=== PATIENT | female | born 1955 | race Caucasian/White ===

== ENCOUNTER → 2017-02-22 | Outpatient (CLI) | payer BC, OTHER ==
--- NOTE | 2017-02-22 10:13 | REPMRS ---
Patient History The patient states she had a clinical breast exam in Patient is postmenopausal. No known family history of cancer. Took estrogen for 1 year. Digital Woman Screen Mammo: February 22, 2017 - Exam #: [id number] Bilateral CC and MLO view(s) were taken. Technologist: Jennifer Sam, Technologist Prior study comparison: March 15, 2015, digital woman screen mammo performed at [facility]. May 10, 2013, digital woman screen mammo performed at [facility]. August 20, 2010, bilateral bilat screen digital mammo performed at [facility]. October 02, 2009, bilateral bilat screen digital mammo performed at [facility]. FINDINGS: There are scattered fibroglandular densities. There has been no change in the appearance of the mammogram from the prior studies. There is a mild amount of residual fibroglandular tissue which is fairly symmetric. There is no interval development of dominant mass, architectural distortion, or clustered microcalcification suggestive of malignancy. Scattered lymph nodes are seen in the right axilla. No significant changes when compared with prior studies. ASSESSMENT: BI-RADS/ACR category 2 mammogram. Benign finding(s). Recommendation Routine screening mammogram in 1 year (for women over age 40). This mammogram was interpreted with the aid of an FDA-approved computer-aided dectection system. A. Negative x-ray reports should not delay biopsy if a dominant or clinically suspicious mass is present. B. Four to eight percent of cancers are not identified by mammography. C. Adenosis and dense breast may obscure an underlying neoplasm. Electronically Signed By: Arnaldo Rey MD 02/22/17 [id number]
== END ==
LOC: M WHC 08:03
PROVIDERS: ATTEND Nurse Practitioner Family
DX: Z12.31 Encounter for screening mammogram for malignant neoplasm of breast (principal)

== ENCOUNTER → 2017-05-18 | Outpatient (REF) | payer OTHER ==
[2017-05-18 13:02] LABS: ALBUMIN 3.6 GM/DL (3.2-5.2); ALBUMIN/GLOBULIN RATIO 1.33 (1.00-1.93); ALKALINE PHOSPHATASE 88 U/L (45-117); ALT/SGPT 41 U/L (12-78); ANION GAP 4 MEQ/L (8-16); AST/SGOT 47 U/L (15-37); BILIRUBIN,TOTAL 0.5 MG/DL (0.2-1.0); BLOOD UREA NITROGEN 13 MG/DL (7-18); CALCIUM LEVEL 8.4 MG/DL (8.8-10.2); CARBON DIOXIDE LEVEL 30 MEQ/L (21-32); CHLORIDE LEVEL 99 MEQ/L (98-107); CREATININE FOR GFR 0.64 MG/DL (0.55-1.02); GLOMERULAR FILTRATION RATE > 60.0 (>45); GLUCOSE, FASTING 102 MG/DL (80-110); POTASSIUM SERUM 4.2 MEQ/L (3.5-5.1); SODIUM LEVEL 133 MEQ/L (136-145); TOTAL PROTEIN 6.3 GM/DL (6.4-8.2)
== END ==
LOC: M SFHCPLAZ 08:47
PROVIDERS: ATTEND Nurse Practitioner Family
DX: I10 Essential (primary) hypertension (principal)

== ENCOUNTER → 2017-05-20 | Outpatient (CLI) | payer BC, OTHER ==
--- NOTE | 2017-05-21 01:28 | REP ---
Clinical: Hypertension . Comparison: 12/26/2007 . Technique: PA and lateral. Findings: The mediastinum and cardiac silhouette are normal. The lung moya are clear and without acute consolidation, effusion, or pneumothorax. The skeletal structures are intact and normal. Impression: 1. No acute cardiopulmonary process. Signed by Jose Guadalupe Vasquez MD 05/21/2017 01:19 A
== END ==
LOC: M WUC 14:56
PROVIDERS: ATTEND Nurse Practitioner Family
DX: I10 Essential (primary) hypertension (principal)

== ENCOUNTER → 2017-09-13 | Outpatient (CLI) | payer BC, OTHER ==
[2017-09-13 13:24] LABS: ALBUMIN 3.9 GM/DL (3.2-5.2); ALBUMIN/GLOBULIN RATIO 1.44 (1.00-1.93); ALKALINE PHOSPHATASE 85 U/L (45-117); ALT/SGPT 44 U/L (12-78); ANION GAP 5 MEQ/L (8-16); AST/SGOT 46 U/L (15-37); BILIRUBIN,TOTAL 0.5 MG/DL (0.2-1.0); BLOOD UREA NITROGEN 12 MG/DL (7-18); CARBON DIOXIDE LEVEL 31 MEQ/L (21-32); CHLORIDE LEVEL 98 MEQ/L (98-107); CHOLESTEROL LEVEL 183 MG/DL (<200); CREATININE FOR GFR 0.66 MG/DL (0.55-1.02); GLOMERULAR FILTRATION RATE > 60.0 (>45); GLUCOSE, FASTING 82 MG/DL (80-110); POTASSIUM SERUM 3.9 MEQ/L (3.5-5.1); SODIUM LEVEL 134 MEQ/L (136-145); TOTAL PROTEIN 6.6 GM/DL (6.4-8.2); TRIGLYCERIDES LEVEL 93 MG/DL (<150)
== END ==
LOC: M WUC 09:57
PROVIDERS: ATTEND Nurse Practitioner Family
DX: I10 Essential (primary) hypertension (principal); B00.9 Herpesviral infection, unspecified; E78.5 Hyperlipidemia, unspecified

== ENCOUNTER → 2017-10-25 | Outpatient (CLI) | payer BC, OTHER ==
--- NOTE | 2017-10-25 20:51 | REP ---
Duplex carotid sonography: History: Occlusion and stenosis of the carotid. Comparison study April 21, 2016. Findings: Antegrade flow is observed in both vertebral arteries. Right carotid: The right common carotid artery shows diffuse intimal thickening. There is moderate mixed plaquing in the bulb and proximal ICA and proximal ECA on two-dimensional scanning on the right side. Elevated systolic and diastolic ICA velocities are observed on the right on color Doppler and spectral Doppler interrogation. Velocity chart: CCA PSV 70 cm/s ICA PSV 218 cm/s ICA EDV 69 cm/s ECA PSV 246 cm/s Right ICA/CCA ratio elevated 3.1. Impression: 50- 79% category narrowing in the right ICA by Doppler velocity criteria. Right ICA and ECA Doppler velocities have increased in the interval since the prior study. Left carotid: Left common carotid artery shows diffuse intimal thickening. There is moderate mixed plaquing in the bulb and proximal ICA on two-dimensional scanning on the left side. Color flow and spectral Doppler interrogation demonstrate normal waveforms and velocities on the left. Velocity chart: Left CCA PSV 93 cm/s ICA PSV 116 cm/s ICA EDV 30 cm/s ECA PSV 120 cm/s Left ICA/CCA ratio normal 1.2. Impression: 16-49% category narrowing in the left ICA by Doppler velocity criteria. Signed by Inocente Lai MD 10/26/2017 04:14 P
== END ==
LOC: M RAD 16:45
PROVIDERS: ATTEND Internal Medicine Cardiovascular Disease
DX: I65.23 Occlusion and stenosis of bilateral carotid arteries (principal)

== ENCOUNTER → 2017-10-25 | Outpatient (CLI) | payer BC, OTHER | LOC: M WUC 18:11 | PROVIDERS: ATTEND Internal Medicine Cardiovascular Disease | DX: I49.3 Ventricular premature depolarization (principal) ==

== ENCOUNTER → 2017-11-24 | Outpatient (CLI) | payer BC, OTHER ==
[2017-11-24 17:16] LABS: ANION GAP 6 MEQ/L (8-16); BLOOD UREA NITROGEN 18 MG/DL (7-18); CALCIUM LEVEL 8.9 MG/DL (8.8-10.2); CARBON DIOXIDE LEVEL 31 MEQ/L (21-32); CHLORIDE LEVEL 101 MEQ/L (98-107); CREATININE FOR GFR 0.74 MG/DL (0.55-1.02); GLOMERULAR FILTRATION RATE > 60.0 (>45); GLUCOSE, FASTING 82 MG/DL (80-110); POTASSIUM SERUM 3.6 MEQ/L (3.5-5.1); SODIUM LEVEL 138 MEQ/L (136-145)
== END ==
LOC: M WUC 12:13
DX: I10 Essential (primary) hypertension (principal)
CPT/HCPCS: 80048

== ENCOUNTER → 2018-02-22 | Outpatient (CLI) | payer BC | LOC: M WHC 08:45 | DX: Z12.31 Encounter for screening mammogram for malignant neoplasm of breast (principal) | CPT/HCPCS: 77067 ==

== ENCOUNTER → 2018-05-25 | Outpatient (CLI) | payer BC, OTHER ==
[2018-05-25 19:37] LABS: ALBUMIN 3.9 GM/DL (3.2-5.2); ALBUMIN/GLOBULIN RATIO 1.39 (1.00-1.93); ALKALINE PHOSPHATASE 85 U/L (45-117); ALT/SGPT 47 U/L (12-78); ANION GAP 7 MEQ/L (8-16); AST/SGOT 58 U/L (7-37); BILIRUBIN,TOTAL 0.2 MG/DL (0.2-1.0); BLOOD UREA NITROGEN 20 MG/DL (7-18); CALCIUM LEVEL 8.6 MG/DL (8.8-10.2); CARBON DIOXIDE LEVEL 30 MEQ/L (21-32); CHLORIDE LEVEL 100 MEQ/L (98-107); CREATININE FOR GFR 0.72 MG/DL (0.55-1.30); GLOMERULAR FILTRATION RATE > 60.0 (>45); GLUCOSE, FASTING 97 MG/DL (70-100); MAGNESIUM LEVEL 2.2 MG/DL (1.8-2.4); POTASSIUM SERUM 3.7 MEQ/L (3.5-5.1); SODIUM LEVEL 137 MEQ/L (136-145); TOTAL PROTEIN 6.7 GM/DL (6.4-8.2)
== END ==
LOC: M WUC 17:49
DX: I10 Essential (primary) hypertension (principal)
CPT/HCPCS: 83735

== ENCOUNTER → 2018-05-25 | Outpatient (CLI) | payer BC, OTHER ==
[2018-05-25 19:35] LABS: ANION GAP 8 MEQ/L (8-16); BLOOD UREA NITROGEN 20 MG/DL (7-18); CALCIUM LEVEL 8.6 MG/DL (8.8-10.2); CARBON DIOXIDE LEVEL 30 MEQ/L (21-32); CHLORIDE LEVEL 100 MEQ/L (98-107); CREATININE FOR GFR 0.74 MG/DL (0.55-1.30); GLOMERULAR FILTRATION RATE > 60.0 (>45); GLUCOSE, FASTING 99 MG/DL (70-100); POTASSIUM SERUM 3.7 MEQ/L (3.5-5.1); SODIUM LEVEL 138 MEQ/L (136-145)
== END ==
LOC: M WUC 17:52
DX: I10 Essential (primary) hypertension (principal)

== ENCOUNTER → 2018-06-13 | Outpatient (CLI) | payer BC, OTHER | LOC: M WUC 14:08 | DX: M25.511 Pain in right shoulder (principal); M85.811 Other specified disorders of bone density and structure, right shoulder | CPT/HCPCS: 73030 ==

== ENCOUNTER → 2018-09-14 | Outpatient (CLI) | payer OTHER, BC ==
[2018-09-14 12:49] LABS: ALBUMIN 3.9 GM/DL (3.2-5.2); ALKALINE PHOSPHATASE 79 U/L (45-117); ALT/SGPT 46 U/L (12-78); ANION GAP 5 MEQ/L (8-16); AST/SGOT 49 U/L (7-37); BILIRUBIN,TOTAL 0.4 MG/DL (0.2-1.0); BLOOD UREA NITROGEN 16 MG/DL (7-18); CALCIUM LEVEL 9.2 MG/DL (8.8-10.2); CARBON DIOXIDE LEVEL 31 MEQ/L (21-32); CHLORIDE LEVEL 100 MEQ/L (98-107); CHOLESTEROL LEVEL 169 MG/DL (<200); CHOLESTEROL RISK RATIO 2.315 (<5); CREATININE FOR GFR 0.55 MG/DL (0.55-1.30); GLOMERULAR FILTRATION RATE > 60.0 (>45); GLUCOSE, FASTING 81 MG/DL (70-100); HDL CHOLESTEROL 73 MG/DL (>40); LDL CHOLESTEROL 79 MG/DL (<100); NON-HDL-C 96 MG/DL; POTASSIUM SERUM 3.7 MEQ/L (3.5-5.1); SODIUM LEVEL 136 MEQ/L (136-145); TOTAL PROTEIN 6.5 GM/DL (6.4-8.2); TRIGLYCERIDES LEVEL 85 MG/DL (<150)
[2018-09-14 12:54] LABS: TOTAL 25(OH) VITAMIN D 89.2 NG/ML (30.0-100.0)
== END ==
LOC: M WUC 10:11
DX: R94.5 Abnormal results of liver function studies (principal); E55.9 Vitamin D deficiency, unspecified; E78.5 Hyperlipidemia, unspecified
CPT/HCPCS: 80053

== ENCOUNTER → 2018-09-16 | Outpatient (CLI) | payer BC, OTHER | LOC: M RAD 11:31 | DX: I65.23 Occlusion and stenosis of bilateral carotid arteries (principal) | CPT/HCPCS: 93880 ==

== ENCOUNTER → 2019-03-07 | Outpatient (REF) | payer OTHER ==
[2019-03-10 14:12] LABS: HPV HYBRID CAPTURE II Negative (Negative)
== END ==
LOC: M SFHCWAGY 16:01
PROVIDERS: ATTEND Nurse Practitioner Family
DX: Z12.4 Encounter for screening for malignant neoplasm of cervix (principal)
CPT/HCPCS: 87624; G0123

== ENCOUNTER → 2019-03-07 | Outpatient (CLI) | payer BC ==
--- NOTE | 2019-03-08 09:08 | REPMRS ---
Patient History The patient states she had a clinical breast exam in 02/2019. No known family history of cancer. Took estrogen for 1 year. Digital Woman Screen Mammo: March 07, 2019 - Exam #: [id number] Bilateral CC and MLO view(s) were taken. Technologist: Nicolle Chacon, Technologist Prior study comparison: February 22, 2018, digital woman screen mammo performed at [facility]. February 22, 2017, digital woman screen mammo performed at [facility]. March 15, 2015, digital woman screen mammo performed at [facility]. FINDINGS: The breast tissue is heterogeneously dense. This may lower the sensitivity of mammography. There is a moderate amount of heterogeneously dense fibroglandular tissue which is fairly symmetric. There is no interval development of dominant mass, architectural distortion, or clustered microcalcification typical of malignancy. There has been no change in the appearance of the mammogram from the prior studies. 3-D tomosynthesis shows no additional findings. Assessment: BI-RADS/ACR category 1 mammogram. Negative Mammogram. Recommendation Routine screening mammogram of both breasts in 1 year (for women over age 40). This patient's Lifetime Breast Cancer RIsk is estimated at 6.1 %. This mammogram was interpreted with the aid of an FDA-approved computer-aided dectection system. Electronically Signed By: Sanjay Lai MD 03/08/19 0908
== END ==
LOC: M WHC 14:32
PROVIDERS: ATTEND Nurse Practitioner Family
DX: Z12.31 Encounter for screening mammogram for malignant neoplasm of breast (principal); Z92.23 Personal history of estrogen therapy

== ENCOUNTER 2019-05-02 11:05 | Emergency (ER) | payer BC, OTHER ==
[~2019-05-02] VITALS: Ht 157.5 cm; Wt 56.1 kg
[2019-05-02] MEDS ORDERED: CLEO150C PO (11:41)
[2019-05-02] MEDS ORDERED: INDA125TA PO (11:53)
[2019-05-02] MEDS ORDERED: ACET-897 PO (11:53)
[2019-05-02] MEDS ORDERED: ASPI81CH33 PO (11:53)
[2019-05-02] MEDS ORDERED: ATOR1TAB21 PO (11:53)
[2019-05-02] MEDS ORDERED: CLOP75TA2 PO (11:53)
[2019-05-02] MEDS ORDERED: LOSA100T50 PO (11:53)
[2019-05-02] MEDS ORDERED: K-TA10TA2 PO (11:53)
[2019-05-02 12:00] VITALS: BP 151/77
== END 2019-05-02 12:34 | disposition home or self-care (01) ==
LOC: M ED 11:05
DX: K11.20 Sialoadenitis, unspecified (principal); R59.0 Localized enlarged lymph nodes; I10 Essential (primary) hypertension; E78.9 Disorder of lipoprotein metabolism, unspecified; F17.200 Nicotine dependence, unspecified, uncomplicated; J30.2 Other seasonal allergic rhinitis; Z88.0 Allergy status to penicillin; Z88.1 Allergy status to other antibiotic agents; Z88.8 Allergy status to other drugs, medicaments and biological substances; Z79.899 Other long term (current) drug therapy; Z79.02 Long term (current) use of antithrombotics/antiplatelets; Z79.82 Long term (current) use of aspirin

== ENCOUNTER → 2019-05-03 | Outpatient (CLI) | payer BC, OTHER ==
[~2019-05-03] MED LIST: ACET-897 PO; ASPI81CH33 PO; ATOR1TAB21 PO; CLEO150C PO; CLOP75TA2 PO; INDA125TA PO; K-TA10TA2 PO; LOSA100T50 PO
--- NOTE | 2019-05-15 17:14 | REP ---
Clinical: Stenosis. Comparison: 09/16/2018 Technique: Enriquez scale and color Doppler evaluation using linear high frequency transducer Findings: Two-dimensional enriquez scale and color images demonstrate mixed atheromatous plaquing. Color Doppler interrogation demonstrates arterial wave patterns with elevated velocities to the right carotid bulb/internal carotid artery and mild spectral broadening. Normal flow direction is appreciated in the bilateral vertebral arteries. RIGHT (cm/s) LEFT (cm/s) ICA peak systolic velocity 191.0 103.0 ICA diastolic velocity 55.3 38.4 ECA peak systolic velocity 250.0 135.0 CCA peak systolic velocity 88.4 95.1 ICA/CCA ratio 2.16 1.08 Impression: 1. Findings suggest narrowing in the right internal carotid artery at 50-69% range and external carotid artery and 70% range. 2. Findings suggest narrowing in the left internal carotid artery at the less than 50% range. Electronically Signed by Jose Guadalupe Vasquez MD 05/15/2019 05:06 P
== END ==
LOC: M RAD 13:33
PROVIDERS: ATTEND Surgery Vascular Surgery
DX: I65.23 Occlusion and stenosis of bilateral carotid arteries (principal); F17.218 Nicotine dependence, cigarettes, with other nicotine-induced disorders

== ENCOUNTER → 2019-05-24 | Outpatient (CLI) | payer BC, OTHER ==
[2019-05-24 18:02] LABS: CHOLESTEROL RISK RATIO 1.987 (<5)
== END ==
LOC: M WUC 10:55
PROVIDERS: ATTEND Physician Assistant
DX: I65.23 Occlusion and stenosis of bilateral carotid arteries (principal)

== ENCOUNTER → 2019-05-24 | Outpatient (CLI) | payer BC, OTHER ==
[2019-05-24 16:50] LABS: ALBUMIN 3.8 GM/DL (3.2-5.2); ALT/SGPT 47 U/L (12-78); BILIRUBIN,TOTAL 0.3 MG/DL (0.2-1.0); BLOOD UREA NITROGEN 15 MG/DL (7-18); CALCIUM LEVEL 9.1 MG/DL (8.8-10.2); CARBON DIOXIDE LEVEL 29 MEQ/L (21-32); CHLORIDE LEVEL 100 MEQ/L (98-107); CREATININE FOR GFR 0.59 MG/DL (0.55-1.30); GLOMERULAR FILTRATION RATE > 60.0 (>45); GLUCOSE, FASTING 85 MG/DL (70-100); POTASSIUM SERUM 3.9 MEQ/L (3.5-5.1); SODIUM LEVEL 136 MEQ/L (136-145); TOTAL PROTEIN 6.6 GM/DL (6.4-8.2)
[2019-05-24 16:58] LABS: TOTAL 25(OH) VITAMIN D 49.9 NG/ML (30.0-100.0)
== END ==
LOC: M WUC 10:53
PROVIDERS: ATTEND Nurse Practitioner Family
DX: I10 Essential (primary) hypertension (principal); E55.9 Vitamin D deficiency, unspecified

== ENCOUNTER → 2019-12-27 | Outpatient (CLI) | payer MEDICARE, BC, OTHER ==
--- NOTE | 2019-12-27 11:04 | REP ---
Bilateral lower extremity arterial Doppler duplex ultrasound: Right lower extremity: The brachial peak systole: 160 mmHg. Dorsalis pedis peak systole: 150 mmHg. KILN TRANSFER OPERATOR peak systole: 160 mmHg. JONNY: 1.0. Peak Systolic Phasicity Velocity ANIMAL SURGEON 182 biphasic Profunda 95 biphasic SFA prox 92 biphasic SFA mid 105 triphasic SFA dist 93 bi-triphasic Pop 77 triphasic DALY prox 46 biphasic Tib/P tr 66 triphasic KILN TRANSFER OPERATOR pr 61 triphasic KILN TRANSFER OPERATOR dst 82 triphasic DALY dst 93 triphasic Left lower extremity: There is a brachial peak systole: 145 mmHg. Dorsalis pedis peak systole: 130 mmHg. KILN TRANSFER OPERATOR peak systole: 150 mmHg. JONNY: 0.9. Peak Systolic Phasicity Velocity ANIMAL SURGEON 168 bi-triphasic Profunda 176 biphasic SFA prox 152 triphasic SFA mid 143 triphasic SFA dist 110 triphasic Pop 84 biphasic DALY prox 45 triphasic Tib/P tr 71 triphasic KILN TRANSFER OPERATOR pr 44 triphasic KILN TRANSFER OPERATOR dst 82 biphasic DALY dst 73 biphasic Impression: There is moderate atheromatous plaque in the common femoral arteries bilaterally. There is mild plaque/intimal thickening throughout the remainder of the lower extremities bilaterally. There is no significant stenosis on the right on the left. Electronically Signed by Francisco J Field MD 12/27/2019 10:55 A
== END ==
LOC: M RAD 09:25
PROVIDERS: ATTEND Physician Assistant
DX: I70.213 Atherosclerosis of native arteries of extremities with intermittent claudication, bilateral legs (principal)

== ENCOUNTER → 2020-06-17 | Outpatient (CLI) | payer BC ==
--- NOTE | 2020-06-17 14:27 | REPMRS ---
Patient History The patient states she had a clinical breast exam in May 2020. Patient is postmenopausal. Family history of unknown cancer at age 6 in brother. Took estrogen for 1 year. Digital Woman Screen Mammo: June 17, 2020 - Exam #: [id number] Bilateral CC and MLO view(s) were taken. Technologist: Xin Hernandez Technologist Prior study comparison: March 07, 2019, bilateral digital woman screen mammo performed at [facility]. February 22, 2018, digital woman screen mammo performed at [facility]. February 22, 2017, digital woman screen mammo performed at [facility]. FINDINGS: There are scattered fibroglandular densities. The Volpara volumetric breast density category is:B. There has been no change in the appearance of the mammogram from the prior studies. There is a mild amount of scattered fibroglandular density which is fairly symmetric. There is no interval development of dominant mass, architectural distortion, or grouped microcalcification suggestive of malignancy. 3-D tomosynthesis shows no additional findings. Assessment: BI-RADS/ACR category 1 mammogram. Negative Mammogram. Recommendation Routine screening mammogram of both breasts in 1 year (for women over age 40). This patient's Lifetime Breast Cancer Risk is estimated at 5.8 %. This mammogram was interpreted with the aid of an FDA-approved computer-aided dectection system. Electronically Signed By: Sanjay Lai MD 06/17/20 [id number]
== END ==
LOC: M WHC 10:32
PROVIDERS: ATTEND Nurse Practitioner Family
DX: Z12.31 Encounter for screening mammogram for malignant neoplasm of breast (principal); Z12.4 Encounter for screening for malignant neoplasm of cervix; Z78.0 Asymptomatic menopausal state; Z80.9 Family history of malignant neoplasm, unspecified
CPT/HCPCS: 77063; 77067; G0123

== ENCOUNTER → 2020-07-17 | Outpatient (CLI) | payer MEDICARE, BC ==
--- NOTE | 2020-08-22 10:59 | REP ---
DUPLEX CAROTID SONOGRAPHY HISTORY: Follow-up stenosis. COMPARISON: 05/03/2019. FINDINGS: Antegrade flow is observed in both vertebral arteries. RIGHT CAROTID: There is mild diffuse intimal thickening in the right common carotid artery on two-dimensional scanning. There is [id number] mixed plaquing in the bulb proximal ICA and proximal ECA on the right. Stenotic flow velocities are observed in the right ICA on systole and diastole, as well as in the right ECA. Velocities are somewhat increased compared to the prior study on the right. RIGHT CAROTID VELOCITY CHART PSV EDV CCA 82 cm/s ICA 237 cm/s 65 cm/s ECA 359 cm/s ICA/CCA ratio 2.9 (elevated) IMPRESSION: Greater than 70% category stenosis in the right internal carotid artery (ICA). Velocities have increased since the prior study of 05/03/2019. LEFT CAROTID: The left common carotid artery shows diffuse intimal thickening. Moderate mixed plaquing is seen in the bulb proximal ICA and to a lesser extent proximal ECA on the left side. Stenotic flow velocities are observed in systole and diastole in the left ICA. Velocities have increased since the prior study on the left as well. LEFT CAROTID VELOCITY CHART PSV EDV CCA 100 cm/s ICA 212 cm/s 62 cm/s ECA 126 cm/s ICA/CCA ratio 2.1 (elevated) IMPRESSION: Greater than 70% category stenosis in the left internal carotid artery (ICA) by todays Doppler velocity criteria. Doppler velocities have increased on the left as well when compared with the prior study. MTDD
== END ==
LOC: M RAD 10:33
PROVIDERS: ATTEND Physician Assistant
DX: I65.23 Occlusion and stenosis of bilateral carotid arteries (principal)

== ENCOUNTER → 2021-02-20 | Outpatient (CLI) | payer MEDICARE, BC, OTHER ==
--- NOTE | 2021-02-20 14:18 | REP ---
INDICATION: OCCLUSION AND STENOSIS OF BILATERAL CAROTID ARTERY COMPARISON: Comparison study July 17, 2020.. TECHNIQUE: Real-time ultrasound evaluation and duplex Doppler interrogation of the extracranial carotid vasculature is performed. FINDINGS: Antegrade flow is observed in both vertebral arteries. Right carotid: The right common carotid artery shows diffuse intimal thickening but is otherwise unremarkable. There moderate to marked mixed plaquing in the right carotid bulb and proximal ICA on two-dimensional scanning. Color flow and spectral Doppler interrogation are unremarkable on the right. Velocity chart right carotid: Right CCA PSV: 70 cm/S Right ICA PSV: 210 cm/S Right ICA EDV: 40 cm/S Right ECA PSV: 406 cm/S Right ICA/CCA ratio: 3.01 Left carotid: The left common carotid artery shows diffuse intimal thickening but is otherwise unremarkable. There is moderate to marked mixed plaquing in the left carotid bulb and proximal ICA on two-dimensional scanning. Color flow and spectral Doppler interrogation are unremarkable on the left. Velocity chart left carotid: Left CCA PSV: 87 cm/S Left ICA PSV: 160 cm/S Left ICA EDV: 59 cm/S Left ECA PSV: 109 cm/S Left ICA/CCA ratio: 1.84 IMPRESSION: 50-69% category narrowing in the right internal carotid artery by Doppler velocity criteria. 50-69% category narrowing in the left ICA by Doppler velocity criteria. ICA velocities are slightly less than those recorded on the 07/17/2020 study bilaterally.. Velocity ratios are similar. <Electronically signed by Sanjay Lai > 02/20/21 [id number]
== END ==
LOC: M RAD 10:42
PROVIDERS: ATTEND Surgery Vascular Surgery
DX: I65.23 Occlusion and stenosis of bilateral carotid arteries (principal)

== ENCOUNTER → 2022-03-16 | Outpatient (CLI) | payer MEDICARE, BC, OTHER ==
[~2022-03-16] MED LIST changes: +LOSA100T45 PO; -LOSA100T50 PO
== END ==
LOC: M RAD 11:41
PROVIDERS: ATTEND Physician Assistant
DX: I65.23 Occlusion and stenosis of bilateral carotid arteries (principal)

== ENCOUNTER → 2022-03-26 | Outpatient (REF) | payer MEDICARE, OTHER ==
[2022-03-26 16:37] LABS: HEMATOCRIT 38.8 % (36.0-47.0); HEMOGLOBIN 11.6 g/dl (12.0-15.5); MEAN CORPUSCULAR HGB CONC 29.9 g/dl (32.0-36.5); MEAN CORPUSCULAR VOLUME 80.3 fl (80.0-96.0); PLATELET COUNT, AUTOMATED 311 10^3/uL (150-450); RED BLOOD COUNT 4.83 10^6/uL (4.00-5.40); WHITE BLOOD COUNT 5.4 10^3/uL (4.0-10.0)
[2022-03-26 16:53] LABS: HEMOGLOBIN A1c 5.6 %
[2022-03-26 17:08] LABS: ALBUMIN 3.9 GM/DL (3.2-5.2); ALT/SGPT 45 U/L (12-78); BILIRUBIN,TOTAL 0.3 MG/DL (0.2-1.0); BLOOD UREA NITROGEN 12 MG/DL (7-18); CARBON DIOXIDE LEVEL 30 MEQ/L (21-32); CHLORIDE LEVEL 104 MEQ/L (98-107); CHOLESTEROL LEVEL 187 MG/DL (<200); CHOLESTEROL RISK RATIO 2.253 (<5); CREATININE FOR GFR 0.55 MG/DL (0.55-1.30); GLOMERULAR FILTRATION RATE > 60.0 (>45); GLUCOSE, FASTING 74 MG/DL (70-100); HDL CHOLESTEROL 83 MG/DL (>40); LDL CHOLESTEROL 87 MG/DL (<100); NON-HDL-C 104 MG/DL; POTASSIUM SERUM 3.8 MEQ/L (3.5-5.1); SODIUM LEVEL 136 MEQ/L (136-145); TOTAL PROTEIN 6.9 GM/DL (6.4-8.2); TRIGLYCERIDES LEVEL 84 MG/DL (<150)
== END ==
LOC: M SFHCADAM 12:05
PROVIDERS: ATTEND Family Medicine
DX: K63.5 Polyp of colon (principal); I65.23 Occlusion and stenosis of bilateral carotid arteries; E78.5 Hyperlipidemia, unspecified; Z13.1 Encounter for screening for diabetes mellitus

== ENCOUNTER → 2022-04-24 | Outpatient (CLI) | payer MEDICARE, BC, OTHER ==
[~2022-04-24] MED LIST changes: +PROHANCE 279.3MG/ML 15ML VIAL ONE; +PROHANCE 279.3MG/ML 5ML VIAL ONE
== END ==
LOC: M PLAIMG 09:34
PROVIDERS: ATTEND Physician Assistant
DX: I65.23 Occlusion and stenosis of bilateral carotid arteries (principal)
CPT/HCPCS: 70549; A9576

== ENCOUNTER → 2022-07-15 | Outpatient (CLI) | payer MEDICARE, BC, OTHER ==
[~2022-07-15] MED LIST changes: +INDA1.253 PO; -INDA125TA PO; -PROHANCE 279.3MG/ML 15ML VIAL ONE; -PROHANCE 279.3MG/ML 5ML VIAL ONE
== END ==
LOC: M RAD 07:32
PROVIDERS: ATTEND Physician Assistant
DX: M47.896 Other spondylosis, lumbar region (principal)

== ENCOUNTER → 2022-10-01 | Outpatient (CLI) | payer MEDICARE, BC, OTHER ==
[~2022-10-01] MED LIST changes: +GABA-282 PO
== END ==
LOC: M LABSMTC 11:44
PROVIDERS: ATTEND Anesthesiology
DX: Z01.812 Encounter for preprocedural laboratory examination (principal); Z20.822 Contact with and (suspected) exposure to COVID-19

== ENCOUNTER 2022-10-06 08:33 | Day surgery (SDC) | payer MEDICARE, BC, OTHER ==
[~2022-10-06] VITALS: Ht 154.9 cm; Wt 58.5 kg
[~2022-10-06 08:33] MED LIST changes: +NS 1,000 ML IV ONE
[2022-10-06] MEDS ORDERED: propofoL 200 MG/20 ML VIAL As Ordered ONE ×2 (09:34→09:56)
[2022-10-06] MEDS ORDERED: LIDOCAINE 2% 100MG/5ML SDV (FOR ANES.) As Ordered ONE (09:34)
[2022-10-06 10:40] VITALS: BP 145/70
== END 2022-10-06 10:44 | disposition home or self-care (01) ==
LOC: M OPP 08:33
PROVIDERS: ATTEND Internal Medicine Gastroenterology
DX: Z12.11 Encounter for screening for malignant neoplasm of colon (principal); Z86.010 Personal history of colon polyps; D12.5 Benign neoplasm of sigmoid colon; D12.0 Benign neoplasm of cecum; D12.8 Benign neoplasm of rectum; Q43.8 Other specified congenital malformations of intestine; K64.8 Other hemorrhoids; Z79.02 Long term (current) use of antithrombotics/antiplatelets; Z79.51 Long term (current) use of inhaled steroids; Z79.82 Long term (current) use of aspirin; Z79.899 Other long term (current) drug therapy; Z88.0 Allergy status to penicillin; Z88.6 Allergy status to analgesic agent; Z88.8 Allergy status to other drugs, medicaments and biological substances; I49.3 Ventricular premature depolarization; I65.23 Occlusion and stenosis of bilateral carotid arteries; F17.200 Nicotine dependence, unspecified, uncomplicated; Z80.6 Family history of leukemia

== ENCOUNTER → 2023-04-20 | Outpatient (CLI) | payer MEDICARE, BC, OTHER ==
[~2023-04-20] MED LIST changes: -LOSA100T45 PO; +LOSA100T46 PO; -NS 1,000 ML IV ONE
== END ==
LOC: M RAD 06:57
PROVIDERS: ATTEND Family Medicine
DX: R74.01 Elevation of levels of liver transaminase levels (principal)

== ENCOUNTER → 2023-06-08 | Outpatient (CLI) | payer MEDICARE, BC, OTHER ==
[~2023-06-08] MED LIST changes: +GLUCAGON INJ 1MG VIAL As Ordered ONE; +ISOVUE-370 76% 100ML VIAL As Ordered ONE; -K-TA10TA2 PO; +NEULUMEX 0.1% SUSPENSION 450ML BOTTLE (FORMERLY VOLUMEN) As Ordered ONE; +POTA-165 PO; +PRES10CA2 PO; +VITA100093 PO; +VITATAB73 PO; +VITMTA PO; +XIID5DRO OU
== END ==
LOC: M RAD 13:27
PROVIDERS: ATTEND Physician Assistant Medical
DX: D50.9 Iron deficiency anemia, unspecified (principal)
CPT/HCPCS: 74177; J1610; Q9967

== ENCOUNTER → 2023-07-01 | Outpatient (CLI) | payer MEDICARE, BC, OTHER ==
[~2023-07-01] MED LIST changes: -GLUCAGON INJ 1MG VIAL As Ordered ONE; -ISOVUE-370 76% 100ML VIAL As Ordered ONE; -NEULUMEX 0.1% SUSPENSION 450ML BOTTLE (FORMERLY VOLUMEN) As Ordered ONE; +PROHANCE 279.3MG/ML 15ML VIAL ONE
== END ==
LOC: M PLAIMG 14:30
PROVIDERS: ATTEND Physician Assistant Medical
DX: R93.3 Abnormal findings on diagnostic imaging of other parts of digestive tract (principal)
CPT/HCPCS: 74183; A9576

== ENCOUNTER → 2023-07-21 | Outpatient (CLI) | payer MEDICARE, BC, OTHER ==
[~2023-07-21] MED LIST changes: -PROHANCE 279.3MG/ML 15ML VIAL ONE
== END ==
LOC: M PLAIMG 10:19
PROVIDERS: ATTEND Physician Assistant
DX: R59.0 Localized enlarged lymph nodes (principal); Z72.0 Tobacco use

== ENCOUNTER → 2023-08-11 | Outpatient (CLI) | payer MEDICARE, BC, OTHER | LOC: M RAD 12:32 | PROVIDERS: ATTEND Physician Assistant | DX: D25.9 Leiomyoma of uterus, unspecified (principal); I65.23 Occlusion and stenosis of bilateral carotid arteries; N83.8 Other noninflammatory disorders of ovary, fallopian tube and broad ligament ==

== ENCOUNTER → 2023-08-11 | Outpatient (CLI) | payer MEDICARE, BC, OTHER | LOC: M RAD 12:20 | PROVIDERS: ATTEND Surgery Vascular Surgery | DX: I65.23 Occlusion and stenosis of bilateral carotid arteries (principal) ==

== ENCOUNTER → 2023-12-20 | Outpatient (REF) | payer MEDICARE, BC, OTHER | LOC: M SFHCADAM 11:46 | PROVIDERS: ATTEND Family Medicine | DX: R30.0 Dysuria (principal) ==

== ENCOUNTER → 2024-02-14 | Outpatient (CLI) | payer MEDICARE, BC | LOC: M RAD 12:28 | PROVIDERS: ATTEND Physician Assistant | DX: I65.23 Occlusion and stenosis of bilateral carotid arteries (principal) ==

== ENCOUNTER → 2024-02-28 | Outpatient (REF) | payer MEDICARE, BC ==
[2024-02-28 13:55] LABS: APPEARANCE, URINE CLEAR (CLEAR); BACTERIA, URINE AUTO NEGATIVE (NEGATIVE); BILIRUBIN, URINE AUTO NEGATIVE (NEGATIVE); BLOOD, URINE BLOOD NEGATIVE (NEGATIVE); COLOR, URINE YELLOW (YELLOW); GLUCOSE, URINE (UA) AUTO NEGATIVE (NEGATIVE); KETONE, URINE AUTO NEGATIVE (NEGATIVE); LEUKOCYTE ESTERASE, URINE AUTO 3+ (NEGATIVE); NITRITE, URINE AUTO NEGATIVE (NEGATIVE); PROTEIN, URINE AUTO NEGATIVE (NEGATIVE); RBC, URINE AUTO 2 /HPF (0-3); SPECIFIC GRAVITY URINE AUTO 1.005 (1.002-1.035); SQUAMOUS EPITHELIAL CELL UR AU 0 /HPF (0-6); UROBILINOGEN, URINE AUTO 0.2 mg/dL (0.0-2.0); WBC, URINE AUTO 56 /HPF (0-3)
== END ==
LOC: M SFHCWAGY 12:40
PROVIDERS: ATTEND Nurse Practitioner Family
DX: Z12.4 Encounter for screening for malignant neoplasm of cervix (principal); R30.0 Dysuria; N95.2 Postmenopausal atrophic vaginitis
CPT/HCPCS: 81001; 87070; 87088; 87186; 87624; G0123

== ENCOUNTER → 2024-02-28 | Outpatient (CLI) | payer MEDICARE, BC | LOC: M WHC 09:31 | PROVIDERS: ATTEND Nurse Practitioner Family | DX: Z12.31 Encounter for screening mammogram for malignant neoplasm of breast (principal); R92.323 Mammographic fibroglandular density, bilateral breasts ==

== ENCOUNTER → 2024-03-22 | Outpatient (REF) | payer MEDICARE, BC | LOC: M SFHCADAM 15:32 | PROVIDERS: ATTEND Family Medicine | DX: N39.0 Urinary tract infection, site not specified (principal); I11.9 Hypertensive heart disease without heart failure ==

== ENCOUNTER → 2024-04-17 | Outpatient (CLI) | payer MEDICARE, BC ==
[~2024-04-17] MED LIST changes: +PROHANCE 279.3MG/ML 15ML VIAL As Ordered ONE
== END ==
LOC: M RAD 15:42
PROVIDERS: ATTEND Physician Assistant Medical
DX: R93.3 Abnormal findings on diagnostic imaging of other parts of digestive tract (principal); K76.89 Other specified diseases of liver
CPT/HCPCS: 74183; A9576

== ENCOUNTER → 2024-04-26 | Outpatient (CLI) | payer MEDICARE, BC ==
[~2024-04-26] MED LIST changes: -PROHANCE 279.3MG/ML 15ML VIAL As Ordered ONE
== END ==
LOC: M SLEEP HO 11:02
PROVIDERS: ATTEND Family Medicine
DX: G47.10 Hypersomnia, unspecified (principal); G47.30 Sleep apnea, unspecified

== ENCOUNTER → 2024-07-24 | Outpatient (CLI) | payer MEDICARE, BC | LOC: M RAD 13:47 | PROVIDERS: ATTEND Family Medicine | DX: Z12.2 Encounter for screening for malignant neoplasm of respiratory organs (principal); F17.210 Nicotine dependence, cigarettes, uncomplicated; J98.11 Atelectasis ==

== ENCOUNTER → 2025-02-28 | Outpatient (CLI) | payer MEDICARE, BC ==
[~2025-02-28] MED LIST changes: +GABA-1172 PO; -GABA-282 PO
== END ==
LOC: M WHC 08:38
PROVIDERS: ATTEND Nurse Practitioner Family
DX: Z12.31 Encounter for screening mammogram for malignant neoplasm of breast (principal); R92.2 Inconclusive mammogram

== ENCOUNTER → 2025-02-28 | Outpatient (CLI) | payer MEDICARE, BC | LOC: M WHC 08:40 | PROVIDERS: ATTEND Nurse Practitioner Family | DX: Z13.820 Encounter for screening for osteoporosis (principal); M85.851 Other specified disorders of bone density and structure, right thigh; M85.852 Other specified disorders of bone density and structure, left thigh ==

== ENCOUNTER → 2025-03-07 | Outpatient (CLI) | payer MEDICARE, BC | LOC: M WHC 08:13 | PROVIDERS: ATTEND Nurse Practitioner Family | DX: R92.8 Other abnormal and inconclusive findings on diagnostic imaging of breast (principal); D25.1 Intramural leiomyoma of uterus; N83.292 Other ovarian cyst, left side; N83.291 Other ovarian cyst, right side; N60.02 Solitary cyst of left breast; D25.2 Subserosal leiomyoma of uterus | CPT/HCPCS: 76642; 76830; 76856; 77065; G0279 ==

== ENCOUNTER → 2025-03-09 | Outpatient (CLI) | payer MEDICARE, BC | LOC: M RAD 12:14 | PROVIDERS: ATTEND Physician Assistant | DX: I65.23 Occlusion and stenosis of bilateral carotid arteries (principal); Z48.812 Encounter for surgical aftercare following surgery on the circulatory system ==

== ENCOUNTER → 2025-07-12 | Outpatient (CLI) | payer MEDICARE, BC ==
[~2025-07-12] MED LIST changes: +LIFI1DRO4 OU; -XIID5DRO OU
== END ==
LOC: M PLAIMG 10:33
PROVIDERS: ATTEND Internal Medicine Cardiovascular Disease
DX: I49.3 Ventricular premature depolarization (principal); I50.30 Unspecified diastolic (congestive) heart failure; I08.0 Rheumatic disorders of both mitral and aortic valves

== ENCOUNTER → 2025-09-10 | Outpatient (CLI) | payer MEDICARE, BC | LOC: M WHC 10:32 | PROVIDERS: ATTEND Physician Assistant | DX: I65.23 Occlusion and stenosis of bilateral carotid arteries (principal) ==

== ENCOUNTER → 2025-10-17 | Outpatient (CLI) | payer MEDICARE, BC | LOC: M EKG 11:21 | PROVIDERS: ATTEND Internal Medicine Cardiovascular Disease | DX: I49.3 Ventricular premature depolarization (principal) ==